=== PATIENT | female | born 1965 | race African-American/Black ===

== ENCOUNTER 2016-11-04 11:51 | Emergency (ER) | payer MEDICARE, OTHER ==
[~2016-11-04] VITALS: Ht 175.3 cm; Wt 113.4 kg
[2016-11-04 12:27] VITALS: BP 186/106
== END 2016-11-04 14:08 | disposition home or self-care (01) ==
LOC: ER 11:53
DX: I16.0 Hypertensive urgency (principal)
CPT/HCPCS: A4606; Z7610